=== PATIENT | male | born 1940 | race Caucasian/White ===

== ENCOUNTER → 2020-03-07 | Outpatient (CLI) | payer OTHER | END | disposition home or self-care (01) | LOC: RAH 14:42 | DX: M47.816 Spondylosis without myelopathy or radiculopathy, lumbar region (principal); M51.36 Other intervertebral disc degeneration, lumbar region; I71.4 Abdominal aortic aneurysm, without rupture; M54.17 Radiculopathy, lumbosacral region; M54.31 Sciatica, right side; M54.32 Sciatica, left side; Z98.1 Arthrodesis status ==